=== PATIENT | female | born 1945 | race Caucasian/White ===

== ENCOUNTER 2017-07-08 08:04 | Outpatient (CLI) | payer MEDICARE, BC | END 2017-07-08 08:05 | disposition home or self-care (01) | LOC: BICMAMMO 08:04 | PROVIDERS: ATTEND Obstetrics & Gynecology | DX: Z12.31 Encounter for screening mammogram for malignant neoplasm of breast (principal) | CPT/HCPCS: 77063; G0202; 77067 ==

== ENCOUNTER 2018-07-08 11:09 | Outpatient (CLI) | payer MEDICARE | END 2018-07-08 11:10 | disposition home or self-care (01) | LOC: BICMAMMO 11:09 | PROVIDERS: ATTEND Specialist | DX: Z12.31 Encounter for screening mammogram for malignant neoplasm of breast (principal); Z80.3 Family history of malignant neoplasm of breast | CPT/HCPCS: 77063; 77067 ==

== ENCOUNTER 2019-07-08 08:54 | Outpatient (CLI) | payer MEDICARE ==
--- NOTE | 2019-07-08 09:30 | MMO ---
Bilateral MAMMO Bilat Screen [facility] CLINICAL HISTORY: Patient is 74 years old and is seen for screening. The patient has the following family history of breast cancer: mother, at age 75. The patient has no personal history of cancer. VIEWS: The views performed were: bilateral craniocaudal with tomosynthesis and bilateral mediolateral oblique with tomosynthesis. FILMS COMPARED: The present examination has been compared to prior imaging studies performed at [facility] on 07/06/2015, 06/21/2016, 07/08/2017 and 07/08/2018. This study has been interpreted with the assistance of computer-aided detection. MAMMOGRAM FINDINGS: There are scattered fibroglandular densities. There are stable benign appearing calcifications seen in both breasts. There are no suspicious masses, suspicious calcifications, or new areas of architectural distortion. IMPRESSION: THERE IS NO MAMMOGRAPHIC EVIDENCE OF MALIGNANCY. A ROUTINE FOLLOW-UP MAMMOGRAM IN 1 YEAR IS RECOMMENDED. THE RESULTS OF THIS EXAM WERE SENT TO THE PATIENT. ACR BI-RADS Category 2 - Benign finding MAMMOGRAPHY NOTE: 1. A negative mammogram report should not delay a biopsy if a dominant of clinically suspicious mass is present. 2. Approximately 10% to 15% of breast cancers are not detected by mammography. 3. Adenosis and dense breasts may obscure an underlying neoplasm. Reported by: CARL BAUTISTA MD Electonically Signed: [id number]
== END 2019-07-08 08:55 | disposition home or self-care (01) ==
LOC: BICMAMMO 08:54
PROVIDERS: ATTEND Internal Medicine
DX: Z12.31 Encounter for screening mammogram for malignant neoplasm of breast (principal); Z80.3 Family history of malignant neoplasm of breast
CPT/HCPCS: 77063; 77067

== ENCOUNTER 2020-07-26 15:42 | Outpatient (CLI) | payer MEDICARE ==
--- NOTE | 2020-07-27 09:09 | MMO ---
Bilateral MAMMO Bilat Screen [facility] CLINICAL HISTORY: Patient is 75 years old and is seen for screening. The patient has the following family history of breast cancer: mother, at age 75. The patient has no personal history of cancer. VIEWS: The views performed were: bilateral craniocaudal with tomosynthesis and bilateral mediolateral oblique with tomosynthesis. FILMS COMPARED: The present examination has been compared to prior imaging studies performed at [facility] on 06/21/2016, 07/08/2017, 07/08/2018 and 07/08/2019. This study has been interpreted with the assistance of computer-aided detection. MAMMOGRAM FINDINGS: There are scattered fibroglandular densities. Benign calcifications are noted bilaterally. There are no suspicious masses, suspicious calcifications, or new areas of architectural distortion. IMPRESSION: THERE IS NO MAMMOGRAPHIC EVIDENCE OF MALIGNANCY. A ROUTINE FOLLOW-UP MAMMOGRAM IN 1 YEAR IS RECOMMENDED. THE RESULTS OF THIS EXAM WERE SENT TO THE PATIENT. ACR BI-RADS Category 2 - Benign finding MAMMOGRAPHY NOTE: 1. A negative mammogram report should not delay a biopsy if a dominant of clinically suspicious mass is present. 2. Approximately 10% to 15% of breast cancers are not detected by mammography. 3. Adenosis and dense breasts may obscure an underlying neoplasm. Reported by: BRIE FOSTER MD Electonically Signed: [id number]
== END 2020-07-26 15:43 | disposition home or self-care (01) ==
LOC: BICMAMMO 15:42
PROVIDERS: ATTEND Internal Medicine
DX: Z12.31 Encounter for screening mammogram for malignant neoplasm of breast (principal); Z80.3 Family history of malignant neoplasm of breast
CPT/HCPCS: 77063; 77067

== ENCOUNTER 2022-11-28 10:38 | Outpatient (CLI) | payer MEDICARE | END 2022-11-28 10:39 | disposition home or self-care (01) | LOC: BICMAMMO 10:38 | PROVIDERS: ATTEND Internal Medicine | DX: Z12.31 Encounter for screening mammogram for malignant neoplasm of breast (principal) | CPT/HCPCS: 77063; 77067 ==